=== PATIENT | female | born 1975 | race Caucasian/White ===

== ENCOUNTER 2017-10-08 00:42 | Emergency (ER) | payer OTHER ==
[~2017-10-08] VITALS: Ht 167.6 cm; Wt 72.6 kg
[~2017-10-08 00:42] MED LIST: CIPRO500 MG PO; CIPRO750 MG PO; KETO10TA2 PO; NABUMETONE750 MG PO; ORPH100T PO; PREDNISONE5 MG/DOSE- PO; ULTRAM50 MG PO; URETRON DS1 TAB PO
[2017-10-08] MEDS ORDERED: VENTOLIN HFA18 GM IH (07:12)
[2017-10-08] MEDS ORDERED: PROMETH-CODEIN 65 ML PO (07:12)
[2017-10-08] MEDS ORDERED: AZITHROMYCIN500 MG PO (07:12)
[2017-10-08] MEDS ORDERED: TESSALON PERLE100 M1 PO (07:12)
[2017-10-08] MEDS ORDERED: MEDROLPACK PO (07:12)
== END 2017-10-08 07:41 | disposition home or self-care (01) ==
LOC: ER 00:42
DX: J06.9 Acute upper respiratory infection, unspecified (principal)

== ENCOUNTER 2017-12-10 15:04 | Emergency (ER) | payer OTHER ==
[~2017-12-10] VITALS: Ht 165.1 cm; Wt 72.6 kg
[~2017-12-10 15:04] MED LIST changes: +AZITHROMYCIN500 MG PO; +MEDROLPACK PO; +PROMETH-CODEIN 65 ML PO; +TESSALON PERLE100 M1 PO; +VENTOLIN HFA18 GM IH
== END 2017-12-10 16:26 | disposition home or self-care (01) ==
LOC: ER 15:04
DX: J06.9 Acute upper respiratory infection, unspecified (principal)

== ENCOUNTER 2018-01-30 13:41 | Outpatient (CLI) | payer OTHER | END 2018-01-30 13:44 | disposition home or self-care (01) | LOC: LAB 13:41 | DX: Z11.3 Encounter for screening for infections with a predominantly sexual mode of transmission (principal) ==

== ENCOUNTER 2018-03-29 15:32 | Emergency (ER) | payer OTHER ==
[~2018-03-29] VITALS: Ht 167.6 cm; Wt 72.6 kg
== END 2018-03-29 16:58 | disposition home or self-care (01) ==
LOC: ER 15:32
DX: J06.9 Acute upper respiratory infection, unspecified (principal)

== ENCOUNTER 2018-05-08 17:28 | Emergency (ER) | payer OTHER ==
[~2018-05-08] VITALS: Ht 167.6 cm; Wt 72.6 kg
[2018-05-09] MEDS ORDERED: PEPCID40 MG PO (02:45)
[2018-05-09] MEDS ORDERED: ZOFRAN ODT4 MG PO (02:45)
[2018-05-09] MEDS ORDERED: CIPRO500 MG PO (02:45)
== END 2018-05-09 04:44 | disposition home or self-care (01) ==
LOC: ER 17:28
DX: K52.9 Noninfective gastroenteritis and colitis, unspecified (principal)

== ENCOUNTER 2019-01-30 18:34 | Emergency (ER) | payer OTHER ==
[~2019-01-30] VITALS: Ht 165.1 cm; Wt 72.6 kg
[~2019-01-30 18:34] MED LIST changes: +PEPCID40 MG PO; +ZOFRAN ODT4 MG PO
== END 2019-01-30 22:35 | disposition home or self-care (01) ==
LOC: ER 18:34
DX: J11.1 Influenza due to unidentified influenza virus with other respiratory manifestations (principal); B96.0 Mycoplasma pneumoniae [M. pneumoniae] as the cause of diseases classified elsewhere

== ENCOUNTER 2019-05-22 14:44 | Outpatient (CLI) | payer OTHER | END 2019-05-22 14:51 | disposition home or self-care (01) | LOC: MAMO-SONO 14:44 | DX: N60.01 Solitary cyst of right breast (principal) ==

== ENCOUNTER → 2019-06-11 06:50 | Outpatient (CLI) | payer OTHER | END | disposition home or self-care (01) | LOC: LAB 06:50 | DX: D64.89 Other specified anemias (principal); E03.8 Other specified hypothyroidism; E78.00 Pure hypercholesterolemia, unspecified; N39.0 Urinary tract infection, site not specified; E13.9 Other specified diabetes mellitus without complications ==

== ENCOUNTER 2019-07-01 21:01 | Emergency (ER) | payer OTHER ==
[~2019-07-01] VITALS: Ht 165.1 cm; Wt 72.6 kg
[2019-07-01] MEDS ORDERED: DICLOFENAC SODI75 MG PO (22:02)
== END 2019-07-01 22:09 | disposition home or self-care (01) ==
LOC: ER 21:01
DX: M54.5 Low back pain (principal)

== ENCOUNTER 2019-07-03 14:37 | Emergency (ER) | payer OTHER ==
[~2019-07-03] VITALS: Ht 165.1 cm; Wt 72.6 kg
[~2019-07-03 14:37] MED LIST changes: +DICLOFENAC SODI75 MG PO
== END 2019-07-03 21:54 | disposition home or self-care (01) ==
LOC: ER 14:37
DX: M54.16 Radiculopathy, lumbar region (principal); R10.2 Pelvic and perineal pain

== ENCOUNTER 2019-07-12 10:28 | Emergency (ER) | payer OTHER ==
[~2019-07-12] VITALS: Ht 165.1 cm; Wt 72.6 kg
[2019-07-12] MEDS ORDERED: DICLOFENAC SODI75 MG PO (10:51)
[2019-07-12] MEDS ORDERED: NORFLEX100MG PO (10:51)
== END 2019-07-12 10:58 | disposition home or self-care (01) ==
LOC: ER 10:28
DX: M54.5 Low back pain (principal)

== ENCOUNTER 2019-11-21 11:15 | Inpatient (IN) | payer OTHER ==
[~2019-11-21] VITALS: Ht 152.4 cm; Wt 5.0 kg
[~2019-11-21 11:15] MED LIST changes: +NORFLEX100MG PO
--- NOTE | 2019-11-21 11:36 | NUR ---
SE RECIBE PTE. FEMENINA ALERTA CONCIENTE Y ORIENTADA QUE REFIERE DOLOR ABDOMINOPELVICO QUE COMENZO HACE HACE DANIELA HORA. SE UBICA EN BRITTANY 8 CON BARANDAS ELEVADAS.
--- NOTE | 2019-11-21 12:13 | NUR ---
PTE EVALUADA POR EL DR PEREZ QUIEN [place] EL [place]. SE ORIENTA SOBRE EL MISMO, LO CUAL REFIERE ENTENDER. SE REALIZAN PRUEBAS DE LABORATORIO Y SE ADMINISTRAN MEDICAMENTOS JUDY ORDEN MEDICA Y SIGUIENDO MEDIDAS ASEPTICAS. PENDIENTE A REALIZAR CT ABD-PELVICO CON CONTRASTE PO. SE ENTREGA CONTRASTE A PTE Y ORIENTADA SOBRE EL MISMO.
--- NOTE | 2019-11-21 17:12 | NUR ---
PTE ALERTA Y ORIENTADA X 3 ESFERAS A QUIEN SE LE ORIENTA SOBRE EMELIA DE MUESTRAS LAS CUALES SE EXTRAEN BAJO MEDIDAS ASEPTICAS.
--- NOTE | 2019-11-21 18:34 | NUR ---
SE ORIENTA PTE SOBRE INSERCION DE NGT Y REFIERE ENTENDER.SE REALIZAN VARIOS INTENTOS Y PTE PRESENTA [place],SE GILBERTO BAJO OBSERVACION Y SE NOTIFICA A DR NATHAN.
[2019-11-25] MEDS ORDERED: INTESTINEX680 M1 PO (12:03)
[2019-11-25] MEDS ORDERED: PEPCID AC20 MG PO (12:03)
== END 2019-11-25 12:24 | disposition home or self-care (01) | DRG 392 ==
LOC: ER 11:15 → MEDJ 19:31 → SEC-K 19:31 → MEDJ 11-22 11:53
PROVIDERS: ADMIT Internal Medicine; ATTEND Internal Medicine
PROC: BW21ZZZ Computerized Tomography (CT Scan) of Abdomen and Pelvis (ICD-10-PCS; principal; 2019-11-21)
DX: K59.8 Other specified functional intestinal disorders (principal); E86.0 Dehydration

== ENCOUNTER 2020-02-04 09:49 | Outpatient (CLI) | payer OTHER ==
[~2020-02-04 09:49] MED LIST changes: +INTESTINEX680 M1 PO; +PEPCID AC20 MG PO
== END 2020-02-04 10:09 | disposition home or self-care (01) ==
LOC: SONOGRAMA 09:49
PROVIDERS: ATTEND Urology
DX: D25.1 Intramural leiomyoma of uterus (principal)

== ENCOUNTER 2020-03-23 09:17 | Emergency (ER) | payer OTHER ==
[~2020-03-23] VITALS: Ht 165.1 cm; Wt 77.1 kg
== END 2020-03-23 12:42 | disposition home or self-care (01) ==
LOC: ER 09:17
DX: J22 Unspecified acute lower respiratory infection (principal); B96.0 Mycoplasma pneumoniae [M. pneumoniae] as the cause of diseases classified elsewhere

== ENCOUNTER 2020-03-25 12:57 | Emergency (ER) | payer OTHER ==
[~2020-03-25] VITALS: Ht 165.1 cm; Wt 77.1 kg
== END 2020-03-25 13:53 | disposition home or self-care (01) ==
LOC: ER 12:57
DX: M54.5 Low back pain (principal); B96.0 Mycoplasma pneumoniae [M. pneumoniae] as the cause of diseases classified elsewhere; Z20.822 Contact with and (suspected) exposure to COVID-19

== ENCOUNTER 2020-03-31 06:51 | Emergency (ER) | payer OTHER ==
[~2020-03-31] VITALS: Ht 165.1 cm; Wt 74.8 kg
== END 2020-03-31 13:25 | disposition home or self-care (01) ==
LOC: ER 06:51
DX: U07.1 COVID-19 (principal); J12.82 Pneumonia due to coronavirus disease 2019; J06.9 Acute upper respiratory infection, unspecified

== ENCOUNTER 2020-03-31 13:45 | Outpatient (CLI) | payer OTHER | END 2020-03-31 13:48 | disposition home or self-care (01) | LOC: ASH CLINIC 13:45 | PROVIDERS: ATTEND General Practice | DX: Z23 Encounter for immunization (principal); U07.1 COVID-19 ==

== ENCOUNTER 2020-04-16 15:04 | Emergency (ER) | payer OTHER ==
[~2020-04-16] VITALS: Ht 165.1 cm; Wt 74.8 kg
[2020-04-16] MEDS ORDERED: IPRAT-ALBUT 0.5-3 ML IH (18:06)
[2020-04-16] MEDS ORDERED: TUSNEL LIQUID178 ML PO (18:06)
[2020-04-16] MEDS ORDERED: MEDROLPACK PO (18:06)
[2020-04-16] MEDS ORDERED: ZITHROMAX500 MG PO (18:06)
== END 2020-04-16 19:29 | disposition home or self-care (01) ==
LOC: ER 15:04
DX: J45.998 Other asthma (principal); B96.0 Mycoplasma pneumoniae [M. pneumoniae] as the cause of diseases classified elsewhere; R06.02 Shortness of breath; Z20.822 Contact with and (suspected) exposure to COVID-19

== ENCOUNTER → 2020-04-29 | Outpatient (CLI) | payer OTHER ==
[~2020-04-29] MED LIST changes: +BUDESONIDE0.5 MG/21 IH; +DITROPAN XL10 MG; +ECOTRIN325 M1; +HYDROCODONE-CH115 ML PO; +IPRAT-ALBUT 0.5-3 ML IH; +LIPITOR40 M1; +MILLIPRED5 MG; +MUCINEX DM ER1 EAC1 PO; +NEBUSAL4 M1 IH; +PROAIR RESPICL90 MCG; +SYMBICORT 16010.2 GM IH; +TUSNEL LIQUID178 ML PO; +ZITHROMAX500 MG PO
== END | disposition home or self-care (01) ==
LOC: MAMO-SONO 02-05 14:45 → RAD 13:06
PROVIDERS: ATTEND Urology
DX: R05 Cough (principal)

== ENCOUNTER 2020-05-07 07:40 | Emergency (ER) | payer OTHER ==
[~2020-05-07] VITALS: Ht 165.1 cm; Wt 74.8 kg
[~2020-05-07 07:40] MED LIST changes: -BUDESONIDE0.5 MG/21 IH; -DITROPAN XL10 MG; -ECOTRIN325 M1; -HYDROCODONE-CH115 ML PO; -LIPITOR40 M1; -MILLIPRED5 MG; -MUCINEX DM ER1 EAC1 PO; -NEBUSAL4 M1 IH; -PROAIR RESPICL90 MCG; -SYMBICORT 16010.2 GM IH
[2020-05-07] MEDS ORDERED: ECOTRIN325 M1 (07:44)
[2020-05-07] MEDS ORDERED: DITROPAN XL10 MG (07:45)
[2020-05-07] MEDS ORDERED: LIPITOR40 M1 (07:45)
[2020-05-07] MEDS ORDERED: PROAIR RESPICL90 MCG (07:46)
[2020-05-07] MEDS ORDERED: MILLIPRED5 MG (07:46)
[2020-05-07] MEDS ORDERED: HYDROCODONE-CH115 ML PO (14:30)
[2020-05-07] MEDS ORDERED: SYMBICORT 16010.2 GM IH (14:30)
[2020-05-07] MEDS ORDERED: MEDROLPACK PO (14:30)
[2020-05-07] MEDS ORDERED: BUDESONIDE0.5 MG/21 IH (14:39)
[2020-05-07] MEDS ORDERED: NEBUSAL4 M1 IH (14:39)
[2020-05-07] MEDS ORDERED: MUCINEX DM ER1 EAC1 PO (14:39)
[2020-05-07] MEDS ORDERED: IPRAT-ALBUT 0.5-3 ML IH (14:39)
== END 2020-05-07 14:50 | disposition home or self-care (01) ==
LOC: ER 07:40
DX: J20.9 Acute bronchitis, unspecified (principal)

== ENCOUNTER 2020-08-01 01:51 | Emergency (ER) | payer OTHER ==
[~2020-08-01] VITALS: Ht 165.1 cm; Wt 77.1 kg
[~2020-08-01 01:51] MED LIST changes: +BUDESONIDE0.5 MG/21 IH; +DITROPAN XL10 MG; +ECOTRIN325 M1; +HYDROCODONE-CH115 ML PO; +LIPITOR40 M1; +MILLIPRED5 MG; +MUCINEX DM ER1 EAC1 PO; +NEBUSAL4 M1 IH; +PROAIR RESPICL90 MCG; +SYMBICORT 16010.2 GM IH
[2020-08-01] MEDS ORDERED: ACETAMINOPHEN650 M2 PO (04:56)
== END 2020-08-01 05:06 | disposition home or self-care (01) ==
LOC: ER 01:51
DX: R07.89 Other chest pain (principal); B34.9 Viral infection, unspecified

== ENCOUNTER 2020-08-21 08:00 | Outpatient (CLI) | payer OTHER ==
[~2020-08-21 08:00] MED LIST changes: +ACETAMINOPHEN650 M2 PO
== END 2020-08-21 08:30 | disposition home or self-care (01) ==
LOC: PPH VACUNA 08:00
DX: Z23 Encounter for immunization (principal)

== ENCOUNTER 2020-09-15 12:31 | Outpatient (CLI) | payer OTHER | END 2020-09-15 15:37 | disposition home or self-care (01) | LOC: LAB 12:31 | DX: J11.1 Influenza due to unidentified influenza virus with other respiratory manifestations (principal); B96.0 Mycoplasma pneumoniae [M. pneumoniae] as the cause of diseases classified elsewhere; Z00.00 Encounter for general adult medical examination without abnormal findings; Z20.828 Contact with and (suspected) exposure to other viral communicable diseases ==

== ENCOUNTER 2021-01-07 07:26 | Outpatient (CLI) | payer OTHER | END 2021-01-07 08:11 | disposition home or self-care (01) | LOC: SONOGRAMA 07:26 | PROVIDERS: ATTEND Obstetrics & Gynecology | DX: D25.1 Intramural leiomyoma of uterus (principal) ==

== ENCOUNTER → 2021-01-07 07:45 | Outpatient (CLI) | payer OTHER | END | disposition home or self-care (01) | LOC: LAB 07:45 | PROVIDERS: ATTEND Obstetrics & Gynecology | DX: D64.89 Other specified anemias (principal) ==

== ENCOUNTER 2021-01-10 07:56 | Emergency (ER) | payer OTHER ==
[~2021-01-10] VITALS: Ht 165.1 cm; Wt 77.1 kg
[2021-01-10] MEDS ORDERED: DITROPAN XL10 MG (08:10)
== END 2021-01-10 16:09 | disposition home or self-care (01) ==
LOC: ER 07:56
DX: B34.9 Viral infection, unspecified (principal); E86.0 Dehydration

== ENCOUNTER 2021-02-16 11:21 | Outpatient (CLI) | payer OTHER | END 2021-02-16 11:26 | disposition home or self-care (01) | LOC: LAB 11:21 | DX: J15.7 Pneumonia due to Mycoplasma pneumoniae (principal) ==

== ENCOUNTER 2021-03-08 08:00 | Outpatient (CLI) | payer OTHER | END 2021-03-08 08:30 | disposition home or self-care (01) | LOC: PPH VACUNA 08:00 | PROVIDERS: ATTEND Emergency Medicine Pediatric Emergency Medicine | DX: Z23 Encounter for immunization (principal) | CPT/HCPCS: 90686; G0008 ==

== ENCOUNTER 2021-03-19 14:23 | Outpatient (CLI) | payer OTHER | END 2021-03-19 14:27 | disposition home or self-care (01) | LOC: LAB 14:23 | PROVIDERS: ATTEND Obstetrics & Gynecology | DX: D64.89 Other specified anemias (principal); N39.0 Urinary tract infection, site not specified ==

== ENCOUNTER 2021-03-24 01:00 | Outpatient (CLI) | payer OTHER | END 2021-03-24 01:30 | disposition home or self-care (01) | LOC: PPH VACUNA 01:00 | PROVIDERS: ATTEND Emergency Medicine Pediatric Emergency Medicine | DX: Z23 Encounter for immunization (principal) ==

== ENCOUNTER 2021-03-24 13:49 | Outpatient (CLI) | payer OTHER | END 2021-03-24 14:01 | disposition home or self-care (01) | LOC: RAD 13:49 | PROVIDERS: ATTEND Obstetrics & Gynecology | DX: I10 Essential (primary) hypertension (principal); J06.9 Acute upper respiratory infection, unspecified; Z03.818 Encounter for observation for suspected exposure to other biological agents ruled out ==

== ENCOUNTER 2021-04-19 06:33 | Outpatient (CLI) | payer OTHER | END 2021-04-19 06:35 | disposition home or self-care (01) | LOC: LAB 06:33 | PROVIDERS: ATTEND Obstetrics & Gynecology | DX: D64.9 Anemia, unspecified (principal); N39.0 Urinary tract infection, site not specified; N91.1 Secondary amenorrhea ==

== ENCOUNTER 2021-04-20 12:49 | Outpatient (CLI) | payer OTHER | END 2021-04-20 12:54 | disposition home or self-care (01) | LOC: RAD 12:49 | PROVIDERS: ATTEND Obstetrics & Gynecology | DX: J06.9 Acute upper respiratory infection, unspecified (principal); Z03.818 Encounter for observation for suspected exposure to other biological agents ruled out ==

== ENCOUNTER 2021-04-26 09:30 | Inpatient (IN) | payer OTHER ==
[~2021-04-26] VITALS: Ht 165.1 cm; Wt 77.1 kg
== END 2021-05-02 09:09 | disposition home or self-care (01) | DRG 743 ==
LOC: O/R 04-28 06:05 → OB/GYN 04-28 06:05
PROVIDERS: ADMIT Obstetrics & Gynecology; ATTEND Obstetrics & Gynecology
PROC: 0UT50ZZ Resection of Right Fallopian Tube, Open Approach (ICD-10-PCS; 2021-04-28)
PROC: 0UT90ZZ Resection of Uterus, Open Approach (ICD-10-PCS; principal; 2021-04-28 12:30)
DX: D25.1 Intramural leiomyoma of uterus (principal); D25.0 Submucous leiomyoma of uterus; D25.2 Subserosal leiomyoma of uterus; N72 Inflammatory disease of cervix uteri; N80.0 Endometriosis of uterus; Z20.822 Contact with and (suspected) exposure to COVID-19

== ENCOUNTER 2021-08-12 09:48 | Emergency (ER) | payer OTHER ==
[~2021-08-12] VITALS: Ht 165.1 cm; Wt 77.1 kg
[2021-08-12] MEDS ORDERED: PROVENTIL HFA6.7 GM (10:05)
[2021-08-12] MEDS ORDERED: PROAIR RESPICL90 MCG (10:05)
== END 2021-08-12 13:32 | disposition home or self-care (01) ==
LOC: ER 09:48
DX: B34.9 Viral infection, unspecified (principal); R06.02 Shortness of breath; Z20.822 Contact with and (suspected) exposure to COVID-19

== ENCOUNTER 2021-12-21 10:30 | Outpatient (CLI) | payer OTHER ==
[~2021-12-21 10:30] MED LIST changes: +PROVENTIL HFA6.7 GM
== END 2021-12-21 10:35 | disposition home or self-care (01) ==
LOC: PPH VACUNA 10:30
PROVIDERS: ATTEND Emergency Medicine Pediatric Emergency Medicine
DX: Z23 Encounter for immunization (principal)

== ENCOUNTER 2022-09-09 22:21 | Emergency (ER) | payer OTHER ==
[~2022-09-09] VITALS: Ht 162.6 cm; Wt 63.5 kg
== END 2022-09-10 00:42 | disposition home or self-care (01) ==
LOC: ER 22:21
DX: U07.1 COVID-19 (principal); R53.81 Other malaise; R05.9 Cough, unspecified

== ENCOUNTER 2022-11-17 06:26 | Outpatient (CLI) | payer OTHER ==
[2022-11-17 07:28] LABS: HEMATOCRIT 42.2 % (36.0-45.00); HEMOGLOBIN 14.6 g/dL (12.0-15.00); MEAN CELL VOLUME 83.5 fL (80.00-100.00); MEAN CORPUSCULAR HEMOGLOBIN 28.8 pg (27.00-32.0); MEAN CORPUSCULAR HGB CONC 34.5 g/dl (32.0-36.0); PLATELET COUNT 204 K/uL (150-450); RED BLOOD COUNT 5.06 M/uL (4.00-6.00); RED CELL DISTRIBUTION WIDTH 14.3 % (11.5-14.5)
[2022-11-17 08:08] LABS: ALBUMIN 3.8 gm/dL (3.4-5.0); BILIRUBIN TOTAL 0.39 mg/dL (0.3-1.2); BILIRUBIN,CONJUGATED 0.1 mg/dL (0.0-0.2); CALCIUM 8.8 mg/dL (8.5-10.1); CREATININE SERUM 0.87 mg/dL (0.55-1.02); GFR 69.49; GLOBULINA 3.2 G/DL (2.4-3.5); POTASSIUM 4.09 mEq/L (3.5-5.1)
[2022-11-17 15:06] LABS: VITAMIN D3 25 HYDROXY 26.92 ng/ml (30-120)
== END 2022-11-17 06:27 | disposition home or self-care (01) ==
LOC: LAB 06:26
PROVIDERS: ATTEND General Practice
DX: E78.5 Hyperlipidemia, unspecified (principal); E55.9 Vitamin D deficiency, unspecified; N39.0 Urinary tract infection, site not specified; R42 Dizziness and giddiness; Z00.00 Encounter for general adult medical examination without abnormal findings

== ENCOUNTER 2023-10-16 11:13 | Emergency (ER) | payer OTHER ==
[~2023-10-16] VITALS: Ht 167.6 cm; Wt 80.7 kg
[2023-10-16] MEDS ORDERED: MORPHINE SULFATE 4 MG/ML VIAL IV ONE (11:45)
[2023-10-16] MEDS ORDERED: ONDANSETRON HCL 2 MG/ML VIAL IV ONE (11:45)
[2023-10-16] MEDS ORDERED: FAMOtidine 10 MG/ML (4ML VIAL) IV ONE (11:45)
[2023-10-16] MEDS ORDERED: 0.9 % SODIUM CHLORIDE 1,000 ML IV ONE (11:45)
[2023-10-16] MEDS ORDERED: FAMOTIDINE/PF 20 MG/2 ML VIAL ONE (11:47)
[2023-10-16] MEDS ORDERED: ONDANSETRON HCL 2 MG/ML VIAL ONE (11:47)
[2023-10-16 11:57] LABS: HEMATOCRIT 46.7 % (36.0-45.00); HEMOGLOBIN 15.8 g/dL (12.0-15.00); MEAN CELL VOLUME 86.2 fL (80.00-100.00); MEAN CORPUSCULAR HEMOGLOBIN 29.1 pg (27.00-32.0); MEAN CORPUSCULAR HGB CONC 33.7 g/dl (32.0-36.0); PLATELET COUNT 208 K/uL (150-450); RED BLOOD COUNT 5.42 M/uL (4.00-6.00); RED CELL DISTRIBUTION WIDTH 13.6 % (11.5-14.5)
[2023-10-16 12:33] LABS: INR 0.94; PARTIAL THROMBOPLASTIN TIME 30.9 SECONDS (22.0-34.0); PROTHROMBIN TIME 10.3 SECONDS (9.0-11.5)
[2023-10-16 12:34] LABS: URINE APPEARANCE Clear; URINE BILIRRUBIN Negative (NEGATIVE); URINE BLOOD Small; URINE COLOR Yellow; URINE GLUCOSE Negative (NEGATIVE); URINE KETONE Negative (NEGATIVE); URINE LEUKOCYTE Negative; URINE NITRATE Negative; URINE PROTEIN Negative (NEGATIVE); URINE UROBILINOGEN 0.2 E.U./dl
[2023-10-16 12:34] LABS: ALBUMIN 4.2 gm/dL (3.4-5.0); BILIRUBIN TOTAL 0.77 mg/dL (0.3-1.2); CALCIUM 9.4 mg/dL (8.5-10.1); CREATININE SERUM 1.02 mg/dL (0.55-1.02); GFR 57.6; GLOBULINA 3.8 G/DL (2.4-3.5); POTASSIUM 3.8 mEq/L (3.5-5.1)
[2023-10-16 12:35] LABS: URINE BACTERIA 162.4 uL (0.0-1933); URINE EPITHELIAL CELLS 16.8 uL (0.0-38.8); URINE RBC 17.8 uL (0.0-20.8); URINE WBC 7.8 uL (0.0-23.2)
[2023-10-16 12:41] LABS: URINE CAST 0.15 uL (0.0-1.40)
[2023-10-16] MEDS ORDERED: ZOFRAN8 MG PO (15:17)
[2023-10-16] MEDS ORDERED: KETO10TA2 PO (15:17)
[2023-10-16] MEDS ORDERED: PEPCID AC20 MG PO (15:17)
== END 2023-10-16 15:29 | disposition home or self-care (01) ==
LOC: ER 11:13
PROVIDERS: General Practice
DX: R19.7 Diarrhea, unspecified (principal); R10.9 Unspecified abdominal pain; Z88.5 Allergy status to narcotic agent; Z88.6 Allergy status to analgesic agent
CPT/HCPCS: 36415; 74177; Q9965

== ENCOUNTER 2023-11-13 14:32 | Outpatient (CLI) | payer OTHER ==
[~2023-11-13 14:32] MED LIST changes: +ZOFRAN8 MG PO
[2023-11-13 15:05] LABS: URINE APPEARANCE Clear; URINE BILIRRUBIN Negative (NEGATIVE); URINE BLOOD Negative; URINE COLOR Yellow; URINE GLUCOSE Negative (NEGATIVE); URINE KETONE Negative (NEGATIVE); URINE LEUKOCYTE Negative; URINE NITRATE Negative; URINE PROTEIN Negative (NEGATIVE); URINE UROBILINOGEN 0.2 E.U./dl
[2023-11-13 15:06] LABS: HEMATOCRIT 42.2 % (36.0-45.00); HEMOGLOBIN 14.9 g/dL (12.0-15.00); MEAN CELL VOLUME 83.7 fL (80.00-100.00); MEAN CORPUSCULAR HEMOGLOBIN 29.5 pg (27.00-32.0); MEAN CORPUSCULAR HGB CONC 35.3 g/dl (32.0-36.0); PLATELET COUNT 226 K/uL (150-450); RED BLOOD COUNT 5.05 M/uL (4.00-6.00); RED CELL DISTRIBUTION WIDTH 13.6 % (11.5-14.5)
[2023-11-13 15:09] LABS: URINE BACTERIA 395.6 uL (0.0-1933); URINE EPITHELIAL CELLS 31.2 uL (0.0-38.8); URINE RBC 32.5 uL (0.0-20.8)
[2023-11-13 15:35] LABS: URINE WBC 1.3 uL (0.0-23.2)
[2023-11-13 15:37] LABS: ALBUMIN 3.9 gm/dL (3.4-5.0); CALCIUM 9.6 mg/dL (8.5-10.1); CREATININE SERUM 0.9 mg/dL (0.55-1.02); GFR 66.55; PHOSPHOROUS 2.6 mg/dL (2.5-4.9); POTASSIUM 3.3 mEq/L (3.5-5.1)
== END 2023-11-13 14:42 | disposition home or self-care (01) ==
LOC: LAB 14:32
PROVIDERS: ATTEND Specialist/Technologist, Other Nephrology
DX: I10 Essential (primary) hypertension (principal); N18.30 Chronic kidney disease, stage 3 unspecified; E11.21 Type 2 diabetes mellitus with diabetic nephropathy; D63.1 Anemia in chronic kidney disease; N30.00 Acute cystitis without hematuria; E78.5 Hyperlipidemia, unspecified; E03.9 Hypothyroidism, unspecified; B19.10 Unspecified viral hepatitis B without hepatic coma

== ENCOUNTER → 2024-06-20 | Emergency (ER) | payer OTHER ==
[~2024-06-20] VITALS: Ht 167.6 cm; Wt 81.6 kg
[~2024-06-20] MED LIST changes: +BACLOFEN10 MG PO; +DEXAMETHASONE SODIUM PHOSPHATE 4 MG/ML VIAL IM ONE; +DEXAMETHASONE SODIUM PHOSPHATE 4 MG/ML VIAL ONE; +HYDROCHLOROTH12.5 MG; +KETOROLAC TROMETHAMINE 60 MG VIAL IM ONE; +ORPHENADRINE CITRATE 30 MG/ML AMPUL IM ONE; +ORPHENADRINE CITRATE 30 MG/ML AMPUL ONE
[2024-06-20 18:18] VITALS: BP 152/94; O2SAT 100
== END | disposition home or self-care (01) ==
LOC: ER
DX: M62.838 Other muscle spasm (principal); I10 Essential (primary) hypertension; Z88.6 Allergy status to analgesic agent

== ENCOUNTER 2024-10-30 06:44 | Outpatient (CLI) | payer OTHER ==
[~2024-10-30 06:44] MED LIST changes: -DEXAMETHASONE SODIUM PHOSPHATE 4 MG/ML VIAL IM ONE; -DEXAMETHASONE SODIUM PHOSPHATE 4 MG/ML VIAL ONE; -KETOROLAC TROMETHAMINE 60 MG VIAL IM ONE; -ORPHENADRINE CITRATE 30 MG/ML AMPUL IM ONE; -ORPHENADRINE CITRATE 30 MG/ML AMPUL ONE
[2024-10-30 07:37] LABS: URINE APPEARANCE Clear; URINE BILIRRUBIN Negative (NEGATIVE); URINE COLOR Yellow; URINE GLUCOSE Negative (NEGATIVE); URINE KETONE Trace (NEGATIVE); URINE LEUKOCYTE Negative; URINE NITRATE Negative; URINE PROTEIN Negative (NEGATIVE); URINE UROBILINOGEN 1.0 E.U./dl
[2024-10-30 07:41] LABS: URINE BACTERIA 1471.2 uL (0.0-1933); URINE EPITHELIAL CELLS 50.9 uL (0.0-38.8); URINE RBC 22.5 uL (0.0-20.8); URINE WBC 8.6 uL (0.0-23.2)
[2024-10-30 07:46] LABS: BASO % 0.7 % (0.1-1.2); EOS # 0.07 (0.04-0.54); EOS % 0.9 % (0.7-7.0); LYMPH # 1.87 (1.18-3.74); LYMPH % 25.4 % (19.3-53.1); MEAN PLATELET VOLUME 11.20 fl (9.4-12.4); MONO # 0.46 (0.24-0.82); MONO % 6.2 % (4.7-12.5); NEUT # 4.90 (1.56-6.13); NEUT % 66.5 % (34.0-71.1); RED CELL DISTRIBUTION WIDTH 13.2 % (11.6-14.4)
[2024-10-30 07:54] LABS: URINE CAST 0.43 uL (0.0-1.40)
[2024-10-30 07:55] LABS: URINE BLOOD TRACES
[2024-10-30 08:03] LABS: CREATININE URINE RANDOM 249.0 MG/DL (30-125)
[2024-10-30 09:08] LABS: ALT/SGPT 17.0 U/L (12-78); AST/SGOT 17.0 U/L (15-37); BILIRUBIN TOTAL 0.48 mg/dL (0.3-1.2); BUN CREA RATIO 14.0 (7.0-25.0); CHOL HDL RATIO 4.0 (0-5.0); CREATININE SERUM 0.8 mg/dL (0.55-1.02); FREE TRIODOTIRONINE 3.05 pg/ml (2.18-3.98); GFR 75.92; GLOBULINA 3.4 G/DL (2.4-3.5); GLUCOSE FASTING 88.0 mg/dL (65-100); HDL 61.0 mg/dl (40-60); LDL 159.0 mg/dl (0-130); OSMOLALITY SERUM 284.0 MOSM/KG (275-295); T4 FREE 1.13 NG/ML (0.76-1.46); TSH 1.0 uIU/mL (0.358-3.74); VLDL 26.0 (0-39)
== END 2024-10-30 06:45 | disposition home or self-care (01) ==
LOC: LAB 06:44
PROVIDERS: ATTEND Internal Medicine
DX: R73.9 Hyperglycemia, unspecified (principal); R74.01 Elevation of levels of liver transaminase levels; R19.5 Other fecal abnormalities; Z12.89 Encounter for screening for malignant neoplasm of other sites; Z12.11 Encounter for screening for malignant neoplasm of colon; E28.319 Asymptomatic premature menopause; R07.89 Other chest pain; E55.9 Vitamin D deficiency, unspecified; E78.9 Disorder of lipoprotein metabolism, unspecified; N25.81 Secondary hyperparathyroidism of renal origin

== ENCOUNTER 2024-11-29 14:03 | Emergency (ER) | payer OTHER ==
[~2024-11-29] VITALS: Ht 167.6 cm; Wt 80.7 kg
[2024-11-29] MEDS ORDERED: ONDANSETRON HCL 2 MG/ML VIAL IV ONE (17:00)
[2024-11-29] MEDS ORDERED: FAMOTIDINE/PF 20 MG/2 ML VIAL IV ONE (17:00)
[2024-11-29] MEDS ORDERED: KETOROLAC TROMETHAMINE 30 MG VIAL IM ONE (17:00)
[2024-11-29] MEDS ORDERED: ENALAPRILAT DIHYDRATE 2.5 MG/2 ML VIAL IV ONE (17:00)
[2024-11-29] MEDS ORDERED: ENALAPRILAT DIHYDRATE 1.25 MG/ML VIAL IV ONE (17:05)
[2024-11-29] MEDS ORDERED: KETOROLAC TROMETHAMINE 30 MG VIAL ONE (17:05)
[2024-11-29] MEDS ORDERED: ONDANSETRON HCL 2 MG/ML VIAL ONE (17:05)
[2024-11-29] MEDS ORDERED: FAMOTIDINE/PF 20 MG/2 ML VIAL ONE (17:06)
[2024-11-29 17:42] LABS: BASO % 0.7 % (0.1-1.2); EOS # 0.03 (0.04-0.54); EOS % 0.3 % (0.7-7.0); LYMPH # 2.02 (1.18-3.74); LYMPH % 23.4 % (19.3-53.1); MEAN PLATELET VOLUME 11.00 fl (9.4-12.4); MONO # 0.46 (0.24-0.82); MONO % 5.3 % (4.7-12.5); NEUT # 6.04 (1.56-6.13); NEUT % 70.1 % (34.0-71.1); RED CELL DISTRIBUTION WIDTH 12.7 % (11.6-14.4)
[2024-11-29 18:14] LABS: ALT/SGPT 13.0 U/L (12-78); AST/SGOT 15.0 U/L (15-37); BILIRUBIN TOTAL 0.49 mg/dL (0.3-1.2); BUN CREA RATIO 10.0 (7.0-25.0); CREATININE SERUM 0.73 mg/dL (0.55-1.02); GFR 84.39; GLOBULINA 3.7 G/DL (2.4-3.5); GLUCOSE FASTING 89.0 mg/dL (65-100); OSMOLALITY SERUM 281.0 MOSM/KG (275-295)
[2024-11-29 18:22] LABS: URINE BACTERIA 338.3 uL (0.0-1933); URINE EPITHELIAL CELLS 23.2 uL (0.0-38.8); URINE RBC 26.3 uL (0.0-20.8); URINE WBC 2.7 uL (0.0-23.2)
[2024-11-29 18:25] LABS: URINE APPEARANCE Clear; URINE BILIRRUBIN Negative (NEGATIVE); URINE BLOOD Negative; URINE COLOR Yellow; URINE GLUCOSE Negative (NEGATIVE); URINE LEUKOCYTE Negative; URINE NITRATE Negative; URINE PROTEIN Negative (NEGATIVE); URINE UROBILINOGEN 0.2 E.U./dl
[2024-11-29 18:28] LABS: URINE CAST 0.00 uL (0.0-1.40); URINE KETONE 40 (NEGATIVE)
== END 2024-11-29 22:30 | disposition home or self-care (01) ==
LOC: ER 14:03
PROVIDERS: Student in an Organized Health Care Education/Training Program
DX: I16.9 Hypertensive crisis, unspecified (principal); Z88.8 Allergy status to other drugs, medicaments and biological substances; I10 Essential (primary) hypertension

== ENCOUNTER 2024-11-30 22:23 | Emergency (ER) | payer OTHER ==
[~2024-11-30] VITALS: Ht 167.6 cm; Wt 80.7 kg
[2024-12-01] MEDS ORDERED: ENALAPRILAT DIHYDRATE 1.25 MG/ML VIAL IV ONE ×2 (00:33→00:45)
[2024-12-01] MEDS ORDERED: COZAAR25 MG PO (00:38)
== END 2024-12-01 00:48 | disposition home or self-care (01) ==
LOC: ER 22:23
DX: I10 Essential (primary) hypertension (principal); Z88.8 Allergy status to other drugs, medicaments and biological substances